=== PATIENT | female | born 1965 | race Caucasian/White ===

== ENCOUNTER 2018-01-06 09:28 | Emergency (ER) | payer OTHER ==
[~2018-01-06] VITALS: Ht 160 cm; Wt 80.0 kg
[~2018-01-06 09:28] MED LIST: CETI-1; CYAN1TAB24; D 50CAP2 PO; EPIN1INJ17 IM; PRED20 PO; TRIAM.1%T TOPICAL; VARE1PAK5 PO; VIST25CA PO; [UNRECOGNIZED DRUG - OTHER] PO
[2018-01-06 09:43] VITALS: BP 122/75; PULSE 71; RESP 18; O2SAT 97
[2018-01-06] MEDS ORDERED: SODIUM CHLOR 0.9% 1000 ML INJ 1,000 ML IV ONE (10:24)
--- NOTE | 2018-01-06 10:28 | PD ---
HPI Chief Complaint: Syncope/Near-Syncope Time Seen by Provider: 10:11 Travel History International Travel<30 days: No Contact w/Intl Traveler<30days: No Traveled to known affect area: No History of Present Illness HPI 52-year-old female presents the ED via EMS after syncopal episode just before arrival. The patient states that she was out in the heat yesterday, had a dull frontal headache, no associated dizziness, vision changes, similar to previous headaches, resolve spontaneously after going inside and cooling down. She states that she woke up around 2:00 in the morning with bilateral lower extremity cramps. Despite this she states that she was feeling fine this morning, went to work. While there she had 4 or 5 episodes of watery diarrhea with cramping abdominal pain. She states that she was feeling a little nauseated and diaphoretic at the time. She was chatting with a coworker began to feel dizzy, squatted down and had a syncopal episode. Witnesses on scene deny that the patient hit her head. She did briefly lose consciousness. On arrival the patient's alert and oriented. She is able to recall the details of the incident. She denies headache, dizziness, vision changes, chest pain, palpitations, shortness of breath. She states her abdominal pain and nausea has resolved. Denies dysuria, hematuria. Denies lower extremity pain, numbness , tingling, weakness, limitations to range of motion of the extremity. She is a current smoker. She endorses occasional alcohol use, last used 3 or 4 days ago. She denies illicit drug use. PFSH Past Medical History Cancer: No Cardiovascular Problems: No Diabetes: No Diminished Hearing: No Endocrine: No Gastrointestinal Disorders: No Genitourinary: No Hepatitis: No Hiatal Hernia: No Hypertension: No Immune Disorder: No Implanted Vascular Access Dvce: No Medical other: No Musculoskeletal: Yes (LUMBAR DISC DIS.) Neurologic: No Psychiatric: No Reproductive: No Respiratory: No Thyroid Disease: No ?: Not Past Surgical History AICD: No Body Medical Devices: CHIN WIRES Gynecologic Surgery: Yes (LEFT OVARIAN CYSTECTOMY) Hysterectomy: Yes Joint Replacement: No Oral Surgery: Yes (T&A, GINOPLASTY (CHIN REVISION)) Pacemaker: No Tonsillectomy: Yes Other Surgery: Yes (PLASTIC SURGERY ON CHIN) Social History Alcohol Use: Yes (RARELY) Tobacco Use: Yes (0.5 PPD) Substance Use: No Allergies-Medications (Allergen,Severity, Reaction): Coded Allergies: bee venom protein (honey bee) (Verified Allergy, Severe, Shortness of Breath, 08/05/17) bupropion (Verified Allergy, Severe, HIVES, 08/05/17) diatrizoate meglumine (Verified Allergy, Severe, HIVES, 08/05/17) gadobenic acid (Verified Allergy, Severe, HIVES, 08/05/17) gadodiamide (Verified Allergy, Severe, HIVES, 08/05/17) gadoteridol (Verified Allergy, Severe, HIVES, 08/05/17) iodixanol (Verified Allergy, Severe, HIVES, 08/05/17) iohexol (Verified Allergy, Severe, HIVES, 08/05/17) latex (Verified Allergy, Severe, Hives, 08/05/17) Reported Meds & Prescriptions Reported Meds & Active Scripts Active Prednisone 20 Mg Tab 20 Mg PO DIRECTED 60mg(3tabs)x3days,40MG(2 tabs)x 3 days,then 20 MG (1 tab)x3 days,then 10 MG daily(1/2tab)x 4 days Triamcinolone Topical (Triamcinolone Acetonide) 0.1 % Oint 1 Applic TOPICAL BID Vistaril (Hydroxyzine Pamoate) 25 Mg Cap 25 Mg PO Q6H PRN Chantix Continuing Month Sunday (Varenicline) 1 Mg Sunday 1 Mg PO BIDPC Epinephrine Inj (Epinephrine) 0.3 Mg/0.3 Ml Pfpen 0.3 Mg IM ONCE PRN Reported B12 (Cyanocobalamin) 1,000 Mcg Tab D3 Maximum Strength (Cholecalciferol) 5,000 Unit Cap 5,000 Units PO DAILY [eggshell membrane] 500 Mg PO DAILY Zyrtec (Cetirizine HCl) 10 Mg Tablet Review of Systems Except as stated in HPI: all other systems reviewed are Neg Physical Exam Narrative GENERAL: Well-nourished, well-developed white female in no acute distress. Sitting up in the stretcher, and O 4. SKIN: Warm and dry. Thorough evaluation reveals no edema, ecchymosis, abrasion , or laceration of the skin. HEAD: Normocephalic. Atraumatic. EYES: No scleral icterus. No injection or drainage. PERRLA. EOMI. ENT: Pearly lange tympanic membrane is bilaterally. Nasal mucosa is moist. Oropharynx without erythema, edema or exudate. NECK: Supple, trachea midline. No JVD or lymphadenopathy. No midline tenderness to palpation. Patient retains full, active, painless range of motion of the neck. CARDIOVASCULAR: Regular rate and rhythm without murmurs, gallops, or rubs. RESPIRATORY: Breath sounds clear and equal bilaterally. No accessory muscle use. GASTROINTESTINAL: Abdomen soft, non-tender, nondistended. No palpable hepatosplenomegaly. + Bowel sounds MUSCULOSKELETAL: No cyanosis, or edema. Homans sign negative bilaterally. No tenderness to palpation or limitations to range of motion of the joints of the upper and lower extremities bilaterally. NEUROLOGICAL: Awake and alert. Cranial nerves II through XII intact. Motor and sensory grossly within normal limits. 5/5 muscle strength in all muscle groups. Normal speech. BACK: Nontender without obvious deformity. No CVA tenderness. No midline tenderness. Data Data Last Documented VS Vital Signs Date Time Temp Pulse Resp B/P (MAP) Pulse Ox O2 Delivery O2 Flow Rate FiO2 01/06/18 12:14 72 18 112/68 (83) 98 Room Air Orders Orders Electrocardiogram (01/06/18 10:24) Complete Blood Count With Diff (01/06/18 10:24) Comprehensive Metabolic Panel (01/06/18 10:24) Magnesium (Mg) (01/06/18 10:24) Ckmb (Isoenzyme) Profile (01/06/18 10:24) Troponin I (01/06/18 10:24) Act Partial Throm Time (Ptt) (01/06/18 10:24) Prothrombin Time / Inr (Pt) (01/06/18 10:24) Urinalysis - C+S If Indicated (01/06/18 10:24) Chest, Single Ap (01/06/18 10:24) Ct Brain W/O Iv Contrast(Rout) (01/06/18 10:24) Ecg Monitoring (01/06/18 10:24) Iv Access Insert/Monitor (01/06/18 10:24) Oximetry (01/06/18 10:24) Sodium Chloride 0.9% Flush (Ns Flush) (01/06/18 10:30) Sodium Chlor 0.9% 1000 Ml Inj (Ns 1000 M (01/06/18 10:24) CKMB (01/06/18 10:20) CKMB% (01/06/18 10:20) Ed Discharge Order (01/06/18 12:05) Labs Laboratory Tests Test 01/06/18 10:20 01/06/18 10:39 White Blood Count 8.5 TH/MM3 Red Blood Count 4.65 MIL/MM3 Hemoglobin 13.8 GM/DL Hematocrit 40.9 % Mean Corpuscular Volume 87.8 FL Mean Corpuscular Hemoglobin 29.6 PG Mean Corpuscular Hemoglobin Concent 33.7 % Red Cell Distribution Width 13.4 % Platelet Count 280 TH/MM3 Mean Platelet Volume 9.5 FL Neutrophils (%) (Auto) 75.5 % Lymphocytes (%) (Auto) 14.0 % Monocytes (%) (Auto) 6.8 % Eosinophils (%) (Auto) 2.9 % Basophils (%) (Auto) 0.8 % Neutrophils # (Auto) 6.4 TH/MM3 Lymphocytes # (Auto) 1.2 TH/MM3 Monocytes # (Auto) 0.6 TH/MM3 Eosinophils # (Auto) 0.2 TH/MM3 Basophils # (Auto) 0.1 TH/MM3 CBC Comment DIFF FINAL Differential Comment Prothrombin Time 9.7 SEC Prothromb Time International Ratio 1.0 RATIO Activated Partial Thromboplast Time 27.0 SEC Blood Urea Nitrogen 17 MG/DL Creatinine 0.85 MG/DL Random Glucose 95 MG/DL Total Protein 7.3 GM/DL Albumin 3.7 GM/DL Calcium Level 9.6 MG/DL Magnesium Level 2.3 MG/DL Alkaline Phosphatase 86 U/L Aspartate Amino Transf (AST/SGOT) 30 U/L Alanine Aminotransferase (ALT/SGPT) 45 U/L Total Bilirubin 0.3 MG/DL Sodium Level 142 MEQ/L Potassium Level 4.5 MEQ/L Chloride Level 110 MEQ/L Carbon Dioxide Level 25.2 MEQ/L Anion Gap 7 MEQ/L Estimat Glomerular Filtration Rate 70 ML/MIN Total Creatine Kinase 137 U/L Creatine Kinase MB 1.3 NG/ML Troponin I LESS THAN 0.02 NG/ML Urine Color YELLOW Urine Turbidity CLEAR Urine pH 6.0 Urine Specific [place] 1.011 Urine Protein NEG mg/dL Urine Glucose (UA) NEG mg/dL Urine Ketones NEG mg/dL Urine Occult Blood NEG Urine Nitrite NEG Urine Bilirubin NEG Urine Urobilinogen LESS THAN 2 mg/dL Urine Leukocyte Esterase NEG Urine RBC LESS THAN 1 /hpf Urine WBC LESS THAN 1 /hpf Urine Mucus FEW /lpf Microscopic Urinalysis Comment CULT NOT INDICATED MDM Medical Decision Making Medical Screen Exam Complete: Yes Emergency Medical Condition: Yes Differential Diagnosis Vasovagal syncope versus dehydration versus metabolic derangement versus UTI versus ICH versus ACS versus other Narrative Course 52-year-old female presents to the ED for evaluation after syncopal episode at work. This was preceded by abdominal cramping, multiple episodes of watery stool. She was squatting when the event happened, did not fall or hit her head. This was witnessed by coworkers. On arrival she is alert oriented. No focal neuro deficits. No somatic complaints. Physical exam is reassuring. IV was established. Patient was administered 1 L normal saline. EKG rate 68, sinus rhythm. CO interval 144, QRS 87, QTc 394 ms. Normal axis. No acute ST changes. Reviewed by Dr. López. CXR: No acute cardiopulmonary findings. Cardiac enzymes negative 1. No concerning abnormalities a CBC, CMP, coags. No culture indicated of the UA. CT the brain normal per radiology read. On recheck the patient states that she is feeling well. I suspect this is vasovagal syncope related to her abdominal pain and diarrhea. I discussed the case with Dr. López. He is in agreement with safe discharge. The patient is instructed to rest, hydrate, follow up with her primary care provider for further evaluation, return for worsening symptoms. She indicated understanding of the instructions and is agreeable to care plan. The patient is stable and discharged home. Diagnosis Primary Impression: Episode of syncope Qualified Codes: R55 - Syncope and collapse Referrals: Primary Care Physician Additional Instructions: Rest, hydrate. Resume normal, gentle activities as tolerated. Resume any at home medications as previously prescribed. Return to the ED for any urgent or emergent medical condition. Disposition: 01 DISCHARGE HOME Condition: Stable Iveth Sommer Jan 06, 2018 10:28
[2018-01-06] MEDS ORDERED: SODIUM CHLORIDE 0.9% FLUSH 10 ML FLUSH IVF PRN (10:30)
[2018-01-06 10:37] VITALS: RESP 18; O2SAT 98
[2018-01-06 10:55] LABS: AUTOMATED NEUTROPHIL # 6.4 TH/MM3 (1.8-7.7); BASOPHIL # 0.1 TH/MM3 (0-0.2); BASOPHIL % 0.8 % (0.0-2.0); EOSINOPHIL # 0.2 TH/MM3 (0-0.4); EOSINOPHIL % 2.9 % (0.0-4.0); HEMATOCRIT 40.9 % (35.0-46.0); HEMOGLOBIN 13.8 GM/DL (11.6-15.3); LYMPHOCYTE # 1.2 TH/MM3 (1.0-4.8); MEAN CELL VOLUME 87.8 FL (80.0-100.0); MEAN CORPUSCULAR HEMOGLOBIN 29.6 PG (27.0-34.0); MEAN CORPUSCULAR HGB CONC 33.7 % (32.0-36.0); MEAN PLATELET VOLUME 9.5 FL (7.0-11.0); MONO % 6.8 % (0.0-8.0); MONOCYTE # 0.6 TH/MM3 (0-0.9); NEUT % 75.5 % (16.0-70.0); PLATELET COUNT 280 TH/MM3 (150-450); RED BLOOD COUNT 4.65 MIL/MM3 (4.00-5.30); RED CELL DISTRIBUTION WIDTH 13.4 % (11.6-17.2); WHITE BLOOD COUNT 8.5 TH/MM3 (4.0-11.0)
--- NOTE | 2018-01-06 10:56 | RADRPT ---
EXAM DATE: 01/06/2018 10:49 AM EDT AGE/SEX: 52 years / Female INDICATIONS: Short of breath and syncope. CLINICAL DATA: This is the patient's initial encounter. Patient reports that signs and symptoms have been present for 1 day and indicates a pain score of 0/10. MEDICAL/SURGICAL HISTORY: None. None. COMPARISON: No prior exams available for comparison. FINDINGS: Portable AP view of the chest demonstrates a normal-sized cardiac silhouette. No effusion, consolidat ion, or pneumothorax is identified. The bones and soft tissues demonstrate no acute finding. EKG line s overlie the patient. CONCLUSION: No acute cardiopulmonary abnormality is identified. Electronically signed by: Ambrose Nesbitt MD 01/06/2018 10:55 AM EDT
[2018-01-06 11:04] LABS: BILIRUBIN, URINE NEG (NEG); BLOOD, URINE NEG (NEG); GLUCOSE,URINE NEG (NEG); KETONE, URINE NEG (NEG); MUCUS URINE FEW /lpf (OCC); NITRITE,URINE NEG (NEG); URINE COLOR YELLOW (YELLW/STRAW); URINE LEUKOCYTE ESTERASE NEG (NEG)
[2018-01-06 11:06] LABS: PROTHROMBIN TIME - PATIENT 9.7 SEC (9.8-11.6)
[2018-01-06 11:21] LABS: ALBUMIN 3.7 GM/DL (3.4-5.0); AST (GOT) 30 U/L (15-37); BICARBONATE 25.2 MEQ/L (21.0-32.0); BLOOD UREA NITROGEN 17 MG/DL (7-18); CALCIUM 9.6 MG/DL (8.5-10.1); CHLORIDE 110 MEQ/L (98-107); CREATININE 0.85 MG/DL (0.50-1.00); GLOMERULAR FILTRATION RATE 70 ML/MIN (>89); GLUCOSE,RANDOM 95 MG/DL (74-106); MAGNESIUM 2.3 MG/DL (1.5-2.5); SODIUM (NA) 142 MEQ/L (136-145)
--- NOTE | 2018-01-06 11:22 | RADRPT ---
EXAM DATE: 01/06/2018 11:10 AM EDT AGE/SEX: 52 years / Female INDICATIONS: DIZZINESS. CLINICAL DATA: This is the patient's initial encounter. Patient reports that signs and symptoms have been present for 1 day and indicates a pain score of 5/10. MEDICAL/SURGICAL HISTORY: None. Hysterectomy. RADIATION DOSE: 53.36 CTDI (mGy) COMPARISON: No prior exams available for comparison. No external comparison. TECHNIQUE: CT of the head without contrast. Using automated exposure control and adjustment of the mA and/or kV according to patient size, radiation dose was kept as low as reasonably achievable to ob tain optimal diagnostic quality images. DICOM format image data is available electronically for revi ew and comparison. FINDINGS: Cerebrum: The ventricles are normal for age. No evidence of midline shift, mass lesion, hemorrhage or acute infarction. No extraaxial fluid collections are seen. Posterior Fossa: The cerebellum and brainstem are intact. The 4th ventricle is midline. The cerebe llopontine angle is unremarkable. Extracranial: The visualized portion of the orbits is intact. Skull: The calvaria is intact. No evidence of skull fracture. CONCLUSION: Negative CT Head non contrast. Electronically signed by: Ambrose Lopez MD 01/06/2018 11:20 AM EDT
[2018-01-06 11:23] LABS: ALKALINE PHOSPHATASE 86 U/L (45-117); ALT (GPT) 45 U/L (10-53); TOTAL BILIRUBIN ADULT 0.3 MG/DL (0.2-1.0); TOTAL PROTEIN 7.3 GM/DL (6.4-8.2); TROPONIN I LESS THAN 0.02 NG/ML (0.02-0.05)
--- NOTE | 2018-01-06 12:03 | PD ---
Data Data Last Documented VS Vital Signs Date Time Temp Pulse Resp B/P (MAP) Pulse Ox O2 Delivery O2 Flow Rate FiO2 01/06/18 12:14 72 18 112/68 (83) 98 Room Air Orders Orders Electrocardiogram (01/06/18 10:24) Complete Blood Count With Diff (01/06/18 10:24) Comprehensive Metabolic Panel (01/06/18 10:24) Magnesium (Mg) (01/06/18 10:24) Ckmb (Isoenzyme) Profile (01/06/18 10:24) Troponin I (01/06/18 10:24) Act Partial Throm Time (Ptt) (01/06/18 10:24) Prothrombin Time / Inr (Pt) (01/06/18 10:24) Urinalysis - C+S If Indicated (01/06/18 10:24) Chest, Single Ap (01/06/18 10:24) Ct Brain W/O Iv Contrast(Rout) (01/06/18 10:24) Ecg Monitoring (01/06/18 10:24) Iv Access Insert/Monitor (01/06/18 10:24) Oximetry (01/06/18 10:24) Sodium Chloride 0.9% Flush (Ns Flush) (01/06/18 10:30) Sodium Chlor 0.9% 1000 Ml Inj (Ns 1000 M (01/06/18 10:24) CKMB (01/06/18 10:20) CKMB% (01/06/18 10:20) Ed Discharge Order (01/06/18 12:05) Labs Laboratory Tests Test 01/06/18 10:20 01/06/18 10:39 White Blood Count 8.5 TH/MM3 Red Blood Count 4.65 MIL/MM3 Hemoglobin 13.8 GM/DL Hematocrit 40.9 % Mean Corpuscular Volume 87.8 FL Mean Corpuscular Hemoglobin 29.6 PG Mean Corpuscular Hemoglobin Concent 33.7 % Red Cell Distribution Width 13.4 % Platelet Count 280 TH/MM3 Mean Platelet Volume 9.5 FL Neutrophils (%) (Auto) 75.5 % Lymphocytes (%) (Auto) 14.0 % Monocytes (%) (Auto) 6.8 % Eosinophils (%) (Auto) 2.9 % Basophils (%) (Auto) 0.8 % Neutrophils # (Auto) 6.4 TH/MM3 Lymphocytes # (Auto) 1.2 TH/MM3 Monocytes # (Auto) 0.6 TH/MM3 Eosinophils # (Auto) 0.2 TH/MM3 Basophils # (Auto) 0.1 TH/MM3 CBC Comment DIFF FINAL Differential Comment Prothrombin Time 9.7 SEC Prothromb Time International Ratio 1.0 RATIO Activated Partial Thromboplast Time 27.0 SEC Blood Urea Nitrogen 17 MG/DL Creatinine 0.85 MG/DL Random Glucose 95 MG/DL Total Protein 7.3 GM/DL Albumin 3.7 GM/DL Calcium Level 9.6 MG/DL Magnesium Level 2.3 MG/DL Alkaline Phosphatase 86 U/L Aspartate Amino Transf (AST/SGOT) 30 U/L Alanine Aminotransferase (ALT/SGPT) 45 U/L Total Bilirubin 0.3 MG/DL Sodium Level 142 MEQ/L Potassium Level 4.5 MEQ/L Chloride Level 110 MEQ/L Carbon Dioxide Level 25.2 MEQ/L Anion Gap 7 MEQ/L Estimat Glomerular Filtration Rate 70 ML/MIN Total Creatine Kinase 137 U/L Creatine Kinase MB 1.3 NG/ML Troponin I LESS THAN 0.02 NG/ML Urine Color YELLOW Urine Turbidity CLEAR Urine pH 6.0 Urine Specific [place] 1.011 Urine Protein NEG mg/dL Urine Glucose (UA) NEG mg/dL Urine Ketones NEG mg/dL Urine Occult Blood NEG Urine Nitrite NEG Urine Bilirubin NEG Urine Urobilinogen LESS THAN 2 mg/dL Urine Leukocyte Esterase NEG Urine RBC LESS THAN 1 /hpf Urine WBC LESS THAN 1 /hpf Urine Mucus FEW /lpf Microscopic Urinalysis Comment CULT NOT INDICATED MDM Medical Record Reviewed: Yes Supervised Visit with CLAIRE: Yes Narrative Course I, Dr. López, have reviewed the advance practice practitioner's documentation and am in agreement, met with the patient face to face, made the diagnosis, and the medical decision making was done by me. *My assessment and Findings: Syncopal event likely vasovagal in etiology. No evidence of arrhythmia or significant metabolic derangement. It should be noted that the suture is not recorded here however it was performed and the patient was reported to be afebrile. Luiz López MD Jan 06, 2018 12:03
[2018-01-06 12:14] VITALS: BP 112/68; PULSE 72; RESP 18; O2SAT 98
--- NOTE | 2018-01-07 21:50 | EKG ---
Date Performed: 01/06/2018 Time Performed: 09:48:21 PTAGE: 52 years EKG: Sinus rhythm NORMAL ECG PREVIOUS TRACING : 11/29/2015 14.17 Since the previous tracing, no significant change noted DOCTOR: Francisco Tubbs Interpretating Date/Time 01/07/2018 21:49:21
== END 2018-01-06 12:30 | disposition home or self-care (01) ==
LOC: NEPD 09:28
DX: R55 Syncope and collapse (principal); R19.7 Diarrhea, unspecified; R10.9 Unspecified abdominal pain; R51 Headache; R11.0 Nausea; R61 Generalized hyperhidrosis; R42 Dizziness and giddiness; F17.200 Nicotine dependence, unspecified, uncomplicated; Z87.39 Personal history of other diseases of the musculoskeletal system and connective tissue
CPT/HCPCS: 70450; 71045; 80053; 81001; 82550; 82552; 83735; 84484; 85025; 85610; 85730; 93005; 99285; J7030